=== PATIENT | female | born 1970 | race Two or more races ===

== ENCOUNTER 2024-10-26 11:45 | Inpatient (IN) | payer OTHER ==
[~2024-10-26] VITALS: Ht 213.4 cm; Wt 104.8 kg
[2024-10-26 13:39] VITALS: BP 106/72
[2024-11-01] MEDS ORDERED: METRONIDAZOLE/SODIUM CHLORIDE 500 MG/100 ML PIGGYBACK IV ONE ×2 (08:10→10:15)
[2024-11-01] MEDS ORDERED: CEFTRIAXONE SODIUM 2,000 MG VIAL ONE (08:10)
[2024-11-01] MEDS ORDERED: CEFTRIAXONE SODIUM 2,000 MG VIAL IV ONE (10:15)
[2024-11-01] MEDS ORDERED: BUPIVACAINE HCL/Mpf 0.5% 10ML VIAL ONE (11:29)
[2024-11-01] MEDS ORDERED: LIDOCAINE HCL 1%/EPINEPHRINE 20ML VIAL IJ ONE (11:30)
[2024-11-01] MEDS ORDERED: SUGAMMADEX SODIUM 200 MG/2 ML VIAL IV ONE (11:45)
[2024-11-01] MEDS ORDERED: ONDANSETRON HCL 2 MG/ML VIAL IV PRN (11:45)
[2024-11-01] MEDS ORDERED: OxyCODONE HCL 5 MG TABLET (ROXICODONE) PO PRN (11:45)
[2024-11-01] MEDS ORDERED: MORPHINE SULFATE 4 MG/ML CARTRIDGE IV PRN (11:45)
[2024-11-01] MEDS ORDERED: RINGERS SOLUTION,LACTATED 1,000 ML IV SCH (11:45)
[2024-11-01] MEDS ORDERED: ONDANSETRON HCL 2 MG/ML VIAL IV ONE (12:15)
[2024-11-01] MEDS ORDERED: SIMETHICONE 125 MG CAPSULE PO SCH (13:00)
[2024-11-01] MEDS ORDERED: HYOSCYAMINE SULFATE 0.125 MG TAB.SUBL SL SCH (13:00)
[2024-11-01 13:13] LABS: BASO % 0.6 % (0.1-1.2); EOS # 0.21 (0.04-0.54); EOS % 3.3 % (0.7-7.0); LYMPH # 1.07 (1.18-3.74); LYMPH % 16.9 % (19.3-53.1); MEAN PLATELET VOLUME 9.10 fl (9.4-12.4); MONO # 0.51 (0.24-0.82); MONO % 8.0 % (4.7-12.5); NEUT # 4.50 (1.56-6.13); NEUT % 70.9 % (34.0-71.1); RED CELL DISTRIBUTION WIDTH 12.7 % (11.6-14.4)
[2024-11-01] MEDS ORDERED: ACETAMINOPHEN 500 MG GEL..CAP PO SCH (14:00)
[2024-11-01] MEDS ORDERED: GABAPENTIN 300 MG CAPSULE PO SCH (17:00)
[2024-11-01] MEDS ORDERED: METOCLOPRAMIDE HCL 5 MG/ML VIAL IV SCH (17:00)
[2024-11-01] MEDS ORDERED: SIMETHICONE 125 MG CAPSULE PO ONE (17:19)
[2024-11-01] MEDS ORDERED: METOCLOPRAMIDE HCL 5 MG/ML VIAL ONE (17:19)
[2024-11-01] MEDS ORDERED: HYOSCYAMINE SULFATE 0.125 MG TAB.SUBL ONE (17:20)
[2024-11-01] MEDS ORDERED: GABAPENTIN 300 MG CAPSULE PO ONE (17:20)
[2024-11-01 18:03] VITALS: BP 115/61; O2SAT 96
[2024-11-01] MEDS ORDERED: CELECOXIB 200 MG CAPSULE PO SCH (21:00)
[2024-11-01] MEDS ORDERED: FAMOTIDINE/PF 20 MG/2 ML VIAL IV PUSH SCH (21:00)
[2024-11-02 00:17] VITALS: BP 101/63; O2SAT 100
[2024-11-02] MEDS ORDERED: LACTOBACILLUS ACIDOPHILUS 1 CAP CAP PO SCH (09:00)
[2024-11-02 10:37] LABS: BUN CREA RATIO 10.0 (7.0-25.0); CREATININE SERUM 0.62 mg/dL (0.55-1.02); GFR 99.93; GLUCOSE FASTING 102.0 mg/dL (65-100); OSMOLALITY SERUM 283.0 MOSM/KG (275-295)
[2024-11-02 11:07] VITALS: BP 98/63; O2SAT 98
[2024-11-02 13:07] LABS: BASO % 0.1 % (0.1-1.2); EOS # 0.05 (0.04-0.54); EOS % 0.7 % (0.7-7.0); LYMPH # 1.18 (1.18-3.74); LYMPH % 16.4 % (19.3-53.1); MEAN PLATELET VOLUME 9.50 fl (9.4-12.4); MONO # 0.68 (0.24-0.82); MONO % 9.5 % (4.7-12.5); NEUT # 5.26 (1.56-6.13); NEUT % 73.2 % (34.0-71.1); RED CELL DISTRIBUTION WIDTH 13.1 % (11.6-14.4)
[2024-11-02 17:00] VITALS: BP 105/65; O2SAT 96
[2024-11-02] MEDS ORDERED: ENOXAPARIN SODIUM 40 MG/0.4 ML SYRINGE SUBCUTANEO SCH (17:00)
[2024-11-03 00:38] VITALS: BP 107/65; O2SAT 95
[2024-11-03 07:23] LABS: BASO % 0.1 % (0.1-1.2); EOS # 0.19 (0.04-0.54); EOS % 2.8 % (0.7-7.0); LYMPH # 0.92 (1.18-3.74); LYMPH % 13.7 % (19.3-53.1); MEAN PLATELET VOLUME 9.10 fl (9.4-12.4); MONO # 0.45 (0.24-0.82); MONO % 6.7 % (4.7-12.5); NEUT # 5.12 (1.56-6.13); NEUT % 76.4 % (34.0-71.1); RED CELL DISTRIBUTION WIDTH 13.3 % (11.6-14.4)
[2024-11-03 08:00] VITALS: BP 102/65; O2SAT 97
[2024-11-03 08:05] LABS: BUN CREA RATIO 7.0 (7.0-25.0); CREATININE SERUM 0.56 mg/dL (0.55-1.02); GFR 112.39; GLUCOSE FASTING 93.0 mg/dL (65-100); OSMOLALITY SERUM 283.0 MOSM/KG (275-295)
[2024-11-03] MEDS ORDERED: ENOXAPARIN SODIUM 40 MG/0.4 ML SYRINGE SUBCUTANEO SCH (09:00)
[2024-11-03] MEDS ORDERED: ORPHENADRINE CITRATE 30 MG/ML AMPUL IM NR (12:45)
[2024-11-03 16:00] VITALS: BP 107/67; O2SAT 100
[2024-11-03] MEDS ORDERED: AMINO ACIDS 1 EACH TABLET PO SCH (17:00)
[2024-11-03] MEDS ORDERED: MORPHINE SULFATE 4 MG/ML CARTRIDGE IV PRN (20:45)
[2024-11-03] MEDS ORDERED: ORPHENADRINE CITRATE 30 MG/ML AMPUL IM SCH (21:00)
[2024-11-04 01:25] VITALS: BP 106/63; O2SAT 100
[2024-11-04 07:45] LABS: BASO % 0.2 % (0.1-1.2); EOS # 0.32 (0.04-0.54); EOS % 3.4 % (0.7-7.0); LYMPH # 0.69 (1.18-3.74); LYMPH % 7.3 % (19.3-53.1); MEAN PLATELET VOLUME 9.70 fl (9.4-12.4); MONO # 0.45 (0.24-0.82); MONO % 4.7 % (4.7-12.5); NEUT # 7.98 (1.56-6.13); NEUT % 84.0 % (34.0-71.1); RED CELL DISTRIBUTION WIDTH 13.2 % (11.6-14.4)
[2024-11-04 08:21] VITALS: BP 105/69; O2SAT 95
[2024-11-04 08:36] LABS: ALT/SGPT 26.0 U/L (12-78); AST/SGOT 25.0 U/L (15-37); BILIRUBIN TOTAL 0.69 mg/dL (0.3-1.2); BUN CREA RATIO 8.0 (7.0-25.0); CREATININE SERUM 0.59 mg/dL (0.55-1.02); GFR 105.82; GLOBULINA 3.2 G/DL (2.4-3.5); GLUCOSE FASTING 91.0 mg/dL (65-100); OSMOLALITY SERUM 282.0 MOSM/KG (275-295)
[2024-11-04] MEDS ORDERED: ORPHENADRINE CITRATE 30 MG/ML AMPUL IV SCH (09:00)
[2024-11-04 12:38] LABS: COVID-19 AG NEGATIVE (NEGATIVE)
[2024-11-04 16:00] VITALS: BP 91/60; O2SAT 96
[2024-11-04] MEDS ORDERED: MAGNESIUM SULFATE IN WATER 4 GM/100 ML PIGGYBACK IV NR (19:50)
[2024-11-04] MEDS ORDERED: MORPHINE SULFATE 4 MG/ML CARTRIDGE IV PRN (22:00)
[2024-11-05 02:21] VITALS: BP 105/68; O2SAT 96
[2024-11-05 07:33] LABS: BASO % 0.1 % (0.1-1.2); EOS # 0.42 (0.04-0.54); EOS % 4.2 % (0.7-7.0); LYMPH # 0.68 (1.18-3.74); LYMPH % 6.8 % (19.3-53.1); MEAN PLATELET VOLUME 9.50 fl (9.4-12.4); MONO # 0.64 (0.24-0.82); MONO % 6.4 % (4.7-12.5); NEUT # 8.26 (1.56-6.13); NEUT % 82.2 % (34.0-71.1); RED CELL DISTRIBUTION WIDTH 13.2 % (11.6-14.4)
[2024-11-05 08:00] VITALS: BP 102/67; O2SAT 96
[2024-11-05 08:09] LABS: BUN CREA RATIO 12.0 (7.0-25.0); CREATININE SERUM 0.66 mg/dL (0.55-1.02); GFR 92.98; GLUCOSE FASTING 101.0 mg/dL (65-100); OSMOLALITY SERUM 282.0 MOSM/KG (275-295)
[2024-11-05] MEDS ORDERED: CELECOXIB200 MG PO (08:19)
[2024-11-05] MEDS ORDERED: NEURONTIN300 MG PO (08:20)
[2024-11-05] MEDS ORDERED: NORFLEX100MG PO (08:20)
[2024-11-05] MEDS ORDERED: INTESTINEX680 M1 PO (08:20)
== END 2024-11-05 12:43 | disposition home or self-care (01) | DRG 331 ==
LOC: SURH 11-01 07:00 → OB/GYN 11-01 07:00 → SURH 11-01 08:45
PROVIDERS: ADMIT Surgery; ATTEND Surgery
PROC: 07BB4ZZ Excision of Mesenteric Lymphatic, Percutaneous Endoscopic Approach (ICD-10-PCS; 2024-11-01)
PROC: 0DNW4ZZ Release Peritoneum, Percutaneous Endoscopic Approach (ICD-10-PCS; 2024-11-01)
PROC: 0DTF4ZZ Resection of Right Large Intestine, Percutaneous Endoscopic Approach (ICD-10-PCS; principal; 2024-11-01 08:45)
DX: D12.2 Benign neoplasm of ascending colon (principal); D12.0 Benign neoplasm of cecum

== ENCOUNTER 2024-11-25 10:29 | Outpatient (CLI) | payer OTHER ==
[~2024-11-25 10:29] MED LIST: CELECOXIB200 MG PO; INTESTINEX680 M1 PO; NEURONTIN300 MG PO; NORFLEX100MG PO
== END 2024-11-25 10:36 | disposition home or self-care (01) ==
LOC: TOM 10:29
PROVIDERS: ATTEND Surgery
DX: D12.0 Benign neoplasm of cecum (principal); K66.0 Peritoneal adhesions (postprocedural) (postinfection)